=== PATIENT | female | born 1940 | race African-American/Black ===

== ENCOUNTER 2018-11-06 11:46 | Emergency (ER) | payer OTHER ==
[~2018-11-06] VITALS: Ht 167.6 cm; Wt 49.9 kg
[2018-11-06 11:47] VITALS: BP 169/103
--- NOTE | 2018-11-06 11:55 | NUR ---
Crissy Iglesias [phone] family
--- NOTE | 2018-11-06 12:35 | NUR ---
PT APPEARS TO BE CONFUSED. IS UNAWARE OF WHERE SHE IS. CONSTANTLY TALKING ABOUT HER FATHER WAITING FOR HER. A&O X1. PT GETS SIMPLE COMMANDS MIXED UP. SITTING IN BED WITH FAMILY MEMBER AT BEDSIDE. PLEASANT, CALM IN BED. FAMILY STATES THAT SHE SEEMS MORE CONFUSED THAN USUAL.
[2018-11-06 12:39] LABS: APPEARANCE,URINE CLEAR (CLEAR); BILIRUBIN,URINE NEGATIVE (NEGATIVE); BLOOD, URINE TRACE-I (NEGATIVE); COLOR,URINE YELLOW (YELLOW); LEUKOCYTE ESTERASE ,URINE TRACE (NEGATIVE); NITRITE, URINE NEGATIVE (NEGATIVE); UGLUCOSE NEGATIVE (NEGATIVE)
[2018-11-06 12:41] LABS: BASOPHILS % (AUTO) 0.7 % (0.0-2.0); EOSINOPHILS # (AUTO) 0.1 K/uL (0-0.4); EOSINOPHILS % (AUTO) 2.4 % (0.0-4.0); HEMATOCRIT 39.8 % (36-48); HEMOGLOBIN 13.1 g/dL (12.0-16.0); LYMPHOCYTES # (AUTO) 1.1 K/uL (2.5-16.5); LYMPHOCYTES % (AUTO) 27.5 % (20.5-51.1); MEAN CORPUSCULAR HEMOGLOBIN 28 pg (27-31); MEAN CORPUSCULAR HGB CONC 33 g/dL (33-37); MEAN CORPUSCULAR VOLUME 85.3 fL (80-94); MONOCYTES # (AUTO) 0.4 K/uL (0.8-1.0); MONOCYTES % (AUTO) 9.3 % (1.7-9.3); NEUTROPHILS # (AUTO) 2.3 K/uL (1.8-7.7); NEUTROPHILS % (AUTO) 60.1 % (42.2-75.2); PLATELET COUNT (AUTO) 137 K/uL (140-450); RED BLOOD CELL COUNT(AUTO) 4.67 MIL/uL (4.20-5.40); RED CELL DISTRIBUTION WIDTH 15.1 % (11.6-13.7); WHITE BLOOD COUNT (AUTO) 3.9 K/uL (4.8-10.8)
--- NOTE | 2018-11-06 12:42 | NUR ---
Dr. Morin evaluating patient at bedside.
[2018-11-06 12:53] LABS: PROTHROMBIN TIME 9.9 secs (10.8-13.4)
[2018-11-06 12:56] LABS: RBC,URINE 0-5 /HPF (0-5); WBC,URINE 0-5 /HPF (0-5)
--- NOTE | 2018-11-06 12:57 | NUR ---
cxr at bedside
[2018-11-06 13:00] LABS: POTASSIUM 3.6 mmol/L (3.5-5.1); SODIUM SERUM 144 mmol/L (136-145)
--- NOTE | 2018-11-06 13:00 | NUR ---
lab notified of troponin add on
[2018-11-06 13:01] LABS: ANION GAP 9.5 (8-16); ASPARTATE AMINOTRANSFERASE 23 U/L (15-37); CARBON DIOXIDE 32.1 mmol/L (21-32); CHLORIDE 106 mmol/L (98-107); GLUCOSE 86 mg/dL (74-106); TOTAL BILIRUBIN 0.7 mg/dL (0.0-1.0); UREA NITROGEN, BLOOD 16 mg/dL (7-18)
[2018-11-06 13:02] LABS: ALBUMIN 3.8 g/dL (3.4-5.0)
[2018-11-06 15:38] VITALS: BP 169/103
--- NOTE | 2018-11-06 15:38 | NUR ---
Patient discharged with v/s stable. Written and verbal after care instructions given and explained. Patient verbalized understanding. Ambulatory with steady gait. All questions addressed prior to discharge. Advised to follow up with PMD.
== END 2018-11-06 15:38 | disposition home or self-care (01) ==
LOC: EDBD 11:46 → MED 11:46
DX: F03.90 Unspecified dementia, unspecified severity, without behavioral disturbance, psychotic disturbance, mood disturbance, and anxiety (principal)
CPT/HCPCS: 36415; 71045; 80053; 81001; 84484; 85025; 85610; 93005; 99284

== ENCOUNTER 2019-06-13 10:13 | Emergency (ER) | payer OTHER ==
[~2019-06-13] VITALS: Ht 162.6 cm; Wt 54.4 kg
--- NOTE | 2019-06-13 10:13 | NUR ---
Patient transferred to bed 7 via wheelchair by tech. RN evaluating patient. Family at bedside.
[2019-06-13 10:16] VITALS: BP 131/64
--- NOTE | 2019-06-13 10:20 | NUR ---
RECEIVED A 78/F FROM TRIAGE FOR ALOC SECONDARY TO TAKING UNKOWN AMOUNT OF METOPROLOL. PT IS HEMODYNAMICALLY STABLE. ALERT TO NAME ONLY DUE TO HX OF DEMENTIA. UPON TRASNFER TO [facility] PT APPEARED TO BE SOILED WITH FOUL ODOR OF URINE. CHANGED INTO DRY GOWN. PT REMAINS ON CONTINOUS CARDIAC MONITORING.
--- NOTE | 2019-06-13 10:30 | NUR ---
# 14 FR Urinary catheter inserted utilizing sterile technique. Immediate return of 500ML ml YELLOW/CLEAR urine noted. Urine sample collected and sent to lab. Pt tolerated procedure WELL.
--- NOTE | 2019-06-13 11:08 | NUR ---
Patient taken to CT scan via gurney by [facility].
[2019-06-13 11:09] LABS: BASOPHILS % (AUTO) 0.6 % (0.0-2.0); EOSINOPHILS % (AUTO) 0.8 % (0.0-4.0); HEMATOCRIT 38.8 % (36-48); HEMOGLOBIN 12.7 g/dL (12.0-16.0); LYMPHOCYTES # (AUTO) 0.4 K/uL (2.5-16.5); LYMPHOCYTES % (AUTO) 9.3 % (20.5-51.1); MEAN CORPUSCULAR HEMOGLOBIN 29 pg (27-31); MEAN CORPUSCULAR HGB CONC 33 g/dL (33-37); MEAN CORPUSCULAR VOLUME 86.8 fL (80-94); MONOCYTES # (AUTO) 0.2 K/uL (0.8-1.0); MONOCYTES % (AUTO) 3.7 % (1.7-9.3); NEUTROPHILS # (AUTO) 3.8 K/uL (1.8-7.7); NEUTROPHILS % (AUTO) 85.6 % (42.2-75.2); PLATELET COUNT (AUTO) 159 K/uL (140-450); RED BLOOD CELL COUNT(AUTO) 4.47 MIL/uL (4.20-5.40); RED CELL DISTRIBUTION WIDTH 15.4 % (11.6-13.7); WHITE BLOOD COUNT (AUTO) 4.4 K/uL (4.8-10.8)
[2019-06-13] MEDS ORDERED: NACL 0.9% 1,000 ML IV ONE (11:10)
[2019-06-13 11:11] LABS: APPEARANCE,URINE CLEAR (CLEAR); BILIRUBIN,URINE NEGATIVE (NEGATIVE); BLOOD, URINE NEGATIVE (NEGATIVE); COLOR,URINE YELLOW (YELLOW); LEUKOCYTE ESTERASE ,URINE NEGATIVE (NEGATIVE); NITRITE, URINE NEGATIVE (NEGATIVE); UGLUCOSE NEGATIVE (NEGATIVE)
--- NOTE | 2019-06-13 11:20 | NUR ---
RETURN FROM CT. PT REMAINS ON CONTINOUS CARDAIC MONITORING.
[2019-06-13 11:30] LABS: ALBUMIN 3.6 g/dL (3.4-5.0); ANION GAP 9.3 (8-16); ASPARTATE AMINOTRANSFERASE 36 U/L (15-37); CARBON DIOXIDE 34.3 mmol/L (21-32); CHLORIDE 103 mmol/L (98-107); GLUCOSE 115 mg/dL (74-106); POTASSIUM 4.6 mmol/L (3.5-5.1); SODIUM SERUM 142 mmol/L (136-145); THYROID STIMULATING HORMONE 1.44 uIU/mL (0.34-3.74); TOTAL BILIRUBIN 0.5 mg/dL (0.0-1.0); UREA NITROGEN, BLOOD 29 mg/dL (7-18)
[2019-06-13 11:30] LABS: BARBITURATE, URINE NEGATIVE ng/ml (NEG <=200); BENZODIAZEPINE, URINE NEGATIVE ng/mL (NEG <=200); CANNABINOID, URINE NEGATIVE ng/mL (NEG <=50); COCAINE, URINE NEGATIVE ng/mL (NEG <=300); OPIATE, URINE NEGATIVE ng/mL (NEG <=2000); PHENCYCLIDINE SCREEN,URINE NEGATIVE ng/mL (NEG <=25)
--- NOTE | 2019-06-13 12:00 | NUR ---
NO SIGNS OF DISTRESS. DAUGHTER AT BEDSIDE FOR LEAD PASTOR. ALL QUESTIONS ANSWERED.
--- NOTE | 2019-06-13 12:08 | NUR ---
Patient discharged with v/s stable. Written and verbal after care instructions given and explained. Patient verbalized understanding. Wheel Chair Assisted with by caregiver. All questions addressed prior to discharge. Advised to follow up with PMD.
[2019-06-13 12:10] VITALS: BP 143/81
== END 2019-06-13 12:08 | disposition home or self-care (01) ==
LOC: MED 10:13
DX: R41.82 Altered mental status, unspecified (principal); F03.90 Unspecified dementia, unspecified severity, without behavioral disturbance, psychotic disturbance, mood disturbance, and anxiety; I10 Essential (primary) hypertension
CPT/HCPCS: 36415; 70450; 71045; 80053; 80305; 81003; 83605; 84443; 84484; 85025; 86140; 87040; 93005; 99285; G0482; J7030; Q0092